=== PATIENT | female | born 1990 | race Caucasian/White ===

== ENCOUNTER 2020-03-17 08:41 | Emergency (ER) | payer BC, SELFPAY ==
[2020-03-17 08:57] VITALS: BP 95/39; PULSE 51; RESP 16; TEMP 36.4
--- NOTE | 2020-03-17 09:06 | ED.EYEPROB ---
HPI - Eye Problem General Chief complaint: Eye Problems Stated complaint: Eye problems Time Seen by Provider: 03/17/20 09:06 Source: patient and RN notes reviewed Mode of arrival: ambulatory Limitations: no limitations History of Present Illness HPI Narrative: 30 year old female who presents to [facility] with complaints of feeling like something is in her right eye since 10 pm on [place]. She states that she was adjusting her blankets and doesn't know if she got an eyelash in her eye or something off of blanket went into her right eye. Patient states that she it feels like something is in her eye and she has washed her eye out with no improvement in sensation. She states that she has no change in her vision,denies any photophobia, does admit to some excess tearing and redness to sclera of her right eye. MD chief complaint: eye redness and foreign body (sensation to right eye) Onset (ago): day(s) (since [address]) Onset description: sudden Duration: constant Location: right eye Eye Symptoms: redness and foreign body sensation Place: home Severity: mild Severity scale (1-10): 3 Context: contact lens use Associated symptoms: none Treatments Prior to Arrival: irrigated eye Related Data Patient tetanus UTD: Yes Allergies Allergy/AdvReac Type Severity Reaction Status Date / Time No Known Allergies Allergy Verified 06/29/19 12:58 Review of Systems Review of Systems: Narrative: CONSTITUTIONAL: Denies fever, chills, or sweats. EYES: Denies visual changes,positive for right eye redness,and increase tearing with foreign body feeling to right eye. ENT: Denies rhinorrhea, congestion, sore throat, or otalgia. CARDIOVASCULAR: Denies chest pain, palpitations, or edema. RESPIRATORY: Denies cough or dyspnea. GASTROINTESTINAL: Denies abdominal pain, nausea, vomiting, or diarrhea. GENITOURINARY: Denies dysuria or hematuria. SKIN: Denies rash or itching. MUSCULOSKELETAL: Denies back pain, joint pain, or myalgia. NEUROLOGIC: Denies headache, numbness, or weakness. PSYCHIATRIC: Denies anxiety or depression. 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 There is no relevant family history pertinent to the presenting complaint Exam Narrative: Exam Narrative: GENERAL: Well-appearing, well-nourished, and in no acute distress. HEAD: Normocephalic, atraumatic. EYES: PERRLA and EOMI.right sclerae red and irritated, with no change in vision ENT: Nares clear, no rhinorrhea or epistaxis. Mucous membranes moist. NECK: Supple.no lymphadenopathy CHEST: Clear to auscultation. No respiratory distress. HEART: Regular rate and rhythm. No murmur heard. Normal peripheral pulses. ABDOMEN: Soft, nontender, nondistended, normal active bowel sounds. EXTREMITIES: Normal range of motion. No edema. SKIN: Warm, dry, no rash. NEURO: No focal deficits. Alert and oriented x3. Course Vital Signs Vital signs: Vital Signs Temperature 36.4 C 03/17/20 08:57 Pulse Rate 51 L 03/17/20 08:57 Respiratory Rate 16 03/17/20 08:57 Blood Pr
== END 2020-03-17 09:35 | disposition home or self-care (01) ==
PROVIDERS: Emergency Provider Registered Nurse
DX: S05.01XA Injury of conjunctiva and corneal abrasion without foreign body, right eye, initial encounter (principal); X58.XXXA Exposure to other specified factors, initial encounter
CPT/HCPCS: 99213; A9270; G0463

== ENCOUNTER 2021-01-06 18:09 | Emergency (ER) | payer SELFPAY ==
[2021-01-06 18:19] VITALS: BP 129/61; PULSE 64; RESP 18; TEMP 36.7; O2SAT 100
[2021-01-06 18:51] LABS: Basophils Absolute Auto 0.1 K/mm3 (0.0-0.1); Basophils Percent Auto 0.6 % (0.2-1.2); Eosinophils Absolute Auto 0.2 K/mm3 (0-0.3); Hematocrit 36.4 % (37.0-47.0); Hemoglobin 12.4 g/dL (12.0-15.0); Immature Granulocyte Absolute 0.01 K/mm3 (0.00-0.031); Immature Granulocyte Percent A 0.1 % (0-0.5); Lymphocytes Absolute Auto 1.75 K/mm3 (0.9-3.2); Lymphocytes Percent Auto 22.3 % (18.3-44.2); Mean Corpuscular HGB Conc 34.1 g/dl (32-36); Mean Platelet Volume 11.8 fl (7.4-10.4); Monocytes Absolute Auto 0.4 K/mm3 (0.1-0.6); Monocytes Percent Auto 4.7 % (2.6-8.5); Neutrophils Absolute Auto 5.5 K/mm3 (1.3-6.7); Neutrophils Percent Auto 70.3 % (45.5-73.1); Platelet Count Result 230 k/mm3 (150-375); Red Cell Distribution Width 12.2 % (11.5-14.5); White Blood Count 7.9 K/mm3 (4.5-10.0)
--- NOTE | 2021-01-06 19:53 | PC.NURSE ---
Patient and her state they want to leave. States she is feeling much better and will follow up with her OB. Patient advised of risks of leaving. Patient ambulated out of the ED with a steady gait.
== END 2021-01-06 19:53 | disposition left against medical advice (07) ==
LOC: ANHED 20:09
PROVIDERS: Emergency Provider Emergency Medicine
DX: Z53.21 Procedure and treatment not carried out due to patient leaving prior to being seen by health care provider (principal); O20.9 Hemorrhage in early pregnancy, unspecified; Z3A.01 Less than 8 weeks gestation of pregnancy
CPT/HCPCS: 36415; 84702; 85025; 85461; 99199

== ENCOUNTER 2022-03-14 11:42 | Emergency (ER) | payer SELFPAY ==
[2022-03-14 11:52] VITALS: BP 98/61; PULSE 66; RESP 16; TEMP 36.4; O2SAT 100
--- NOTE | 2022-03-14 12:25 | ED.GENADULT ---
HPI - General Adult General Chief complaint: Extremity Problem,Nontraumatic Stated complaint: infected toenail on rt foot Time Seen by Provider: 03/14/22 12:25 Source: patient, RN notes reviewed and old records reviewed Mode of arrival: ambulatory Limitations: no limitations History of Present Illness HPI narrative: 32-year-old female who presents to [facility] with complaints of infected toenail on the right foot 2nd toe. Patient reports that she has an appointment with a distribution accounting clerk on Thursday was unable to be seen today. Patient reports that she has had problems with toenail since December and it was all the way healed then just recently the nail has grown under on the lateral aspect with some redness and purulent drainage. She has been soaking toe in warm Epsom salt and applying bacitracin ointment. Patient is her 7 month old . complaint: infected toe right 2nd toe Severity scale (1-10): 4 Related Data Allergies Allergy/AdvReac Type Severity Reaction Status Date / Time No Known Allergies Allergy Verified 03/14/22 12:18 Review of Systems Review of Systems: CONSTITUTIONAL: Denies fever, chills, or sweats. EYES: Denies visual changes, redness, or discharge. ENT: Denies rhinorrhea, congestion, sore throat, or otalgia. CARDIOVASCULAR: Denies chest pain, palpitations, or edema. RESPIRATORY: Denies cough or dyspnea. GASTROINTESTINAL: Denies abdominal pain, nausea, vomiting, or diarrhea. GENITOURINARY: Denies dysuria or hematuria. SKIN: Denies rash or itching.Positive for redness discomfort with some purulent drainage right 2nd toe at lateral edge of toe MUSCULOSKELETAL: Denies back pain, joint pain, or myalgia. NEUROLOGIC: Denies headache, numbness, or weakness. PSYCHIATRIC: Denies anxiety or depression. 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 Cande, MANAGER [employer]) Grandparent Family history of coronary artery disease Grandparent Diabetes mellitus Social History Social History (Updated 03/17/20 @ 14:55 by Tamika Castellon NP) Smoking status: Never smoker Second hand tobacco smoke exposure: No Alcohol intake: never Substance use: never Gender identity (if verbalized by the patient): Female Comments At time of signature, agree with nursing past medical, surgical, social and family history. There is no relevant family history pertinent to the presenting complaint Exam Narrative: GENERAL: Well-appearing, well-nourished, and in no acute distress. HEAD: Normocephalic, atraumatic. EYES: PERRLA and EOMI. ENT: Nares clear, no rhinorrhea or epistaxis. Mucous membranes moist.TM's normal with good light reflex, throat pink with no lesions or exudates no swelling NECK: Supple.No lymphadenopathy CHEST: Clear to auscultation. No respiratory distress.SAO2 100% on room air HEART: Regular rate and rhythm. No murmur heard. Normal peripheral pulses. ABDOMEN: Soft, nontender, nondistended, normal active bowel sounds. EXTREMITIES: Normal range of motion. No edema. SKIN: Warm, dry, no rash. redness at edge of toe nail with some pain swelling and small amount of yellowish drainage right 2nd toe NEURO: No focal deficits. Alert and oriented x3. Course Course Emergency Course: Patient is aware of diagnosis, understands and agrees to treatment plan.? Anticipatory guidance given.? Patient agrees to follow-up as directed and is aware of reasons to seek care at the emergency department. Portions of this record may have been created with voice recognition software Level of Care: Express Care Visit
== END 2022-03-14 12:50 | disposition home or self-care (01) ==
PROVIDERS: Emergency Provider Registered Nurse
DX: L60.0 Ingrowing nail (principal)
CPT/HCPCS: 99213; G0463

== ENCOUNTER 2025-02-25 13:02 | Emergency (ER) | payer BC, SELFPAY ==
--- OUTSIDE RECORDS SUMMARY | 2025-01-26 07:37 | XMS_ITS | Continuity of Care Document ---
Author Organization [facility] [place] Address [address] [place] [address] [place] [phone] Phone Care Team Providers Care Bag Printer Name Role Phone Sandy PT,MPT,ATC, Rolly Unavailable Unavai lable Procedures Procedure Date Therapeutic Activities Dry Needling 1-2 muscles Cancel or No Show Charge Therapeutic Activities Dry Needling 1-2 muscles Therapeutic Activities Neuromuscular Re-Ed Therapeutic Activities Neuromuscular Re-Ed Therapeutic Exercise PT Evaluation Moderate Complexity Therapeutic Activities Neuromuscular Re-Ed PT RE-EVALUATION THERAPEUTIC EXERCISES NEUROMUSCULAR RE-ED MANUAL THERAPY FUNC ACTIVITY THERAPEUTIC EXERCISES NEUROMUSCULAR RE-ED MANUAL THERAPY FUNC ACTIVITY THERAPEUTIC EXERCISES NEUROMUSCULAR RE-ED MANUAL THERAPY FUNC ACTIVITY THERAPEUTIC EXERCISES NEUROMUSCULAR RE-ED MANUAL THERAPY FUNC ACTIVITY THERAPEUTIC EXERCISES NEUROMUSCULAR RE-ED MANUAL THERAPY FUNC ACTIVITY THERAPEUTIC EXERCISES NEUROMUSCULAR RE-ED MANUAL THERAPY FUNC ACTIVITY THERAPEUTIC EXERCISES NEUROMUSCULAR RE-ED MANUAL THERAPY FUNC ACTIVITY THERAPEUTIC EXERCISES NEUROMUSCULAR RE-ED MANUAL THERAPY FUNC ACTIVITY THERAPEUTIC EXERCISES MANUAL THERAPY FUNC ACTIVITY PT EVALUATION THERAPEUTIC EXERCISES Theraband, per yard Mini Bands Advance Directives Directive Yes / No Effective Date File Name No Information Encounters Encounter Description Practice Location Reason(s) For Visit Diagnoses Date Provider Providers Copied on Encounter [facility] [address], [id number], tel:[phone] Carmine No Information Nov-0 6-202 [address] [place] , [place], [place]. [facility] [facility] [address], [id number], tel:[phone] Carmine No Information Sep-3 0-202 [address] [place] , [place], [place]. Referring Provider: Access Direct. [facility], [id number], tel:[phone] Carmine No Information Sep-2 3-202 5 [place] , [place], [place]. Referring Provider: Physician Screen. [facility] [facility] [address], [place], [place], [id number], tel:[phone] Carmine No Information Sep-0 9-202 5 [place] , [place]. Referring Provider: Access Direct. [facility] [address] [facility] [address], [place], [place], [id number], tel:[phone] Carmine No Information Sep-0 2-202 5 [place] , [place]. Referring Provider: Access Direct. [facility], [address], [place], [place], [id number], [place] tel:[phone] Carmine No Information [address] [place] , [place]. Referring Provider: Access Direct. [facility], [address], [place], [place], [id number], [place] tel:[phone] Carmine No Information [address] [place] , [place]. Referring Provider: Access Direct. [facility], [address], [place], [place], [id number], [place] tel:[phone] [place] [facility] No Information [address] [place] [place]. . Referring Provider: Bjorn Delacruz, [address], [place], [address]. tel:[phone] [facility], [place], [place], [id number], [place] tel:[phone] [place] [facility] No Information [address] [place] [place]. . Referring Provider: Bjorn Delacruz, [address], [place], [address]. tel:[phone] [facility], [place], [place], [id number], [place] tel:[phone] [place] [facility] No Information [address] [place] [place]. . Referring Provider: Bjorn Delacruz, [address], [place], [address]. tel:[phone] [facility], [place], [place], [id number], [place] tel:[phone] [place] [facility] No Information 3- 5 [place]. . Referring Provider: Ernie Phillips [address], [place], [address]. tel:[phone] [facility], [address], [place], [place], [id number], [place] tel:[phone] [place] [facility] No Information 0 8-201 [address] [place]. . Referring Provider: Bjorn Delacruz, [address] [place] [address], [place], [address]. tel:[phone] [facility], [address], [place], [place], [id number], [place] tel:[phone] [place] [facility] No Information 6-201 5 [place]. . Referring Provider: Bjorn Delacruz, [address] [facility] [address], [place], [address]. tel:[phone] [place] [address], [address], [place], [place], [id number], [place] tel:[phone] [place] [facility] No Information 4-201 5 [place]. . Referring Provider: Ernie Phillips [facility] [address], [place], [address]. tel:[phone] [facility], [address], [place], [place], [id number], [place] tel:[phone] [place] [facility] No Information 2-201 5 [place]. . Referring Provider: Ernie Phillips [facility] [address], [place], [address]. tel:[phone] [facility], [place], [place], [id number], [place] tel:[phone] [place] [facility] No Information 7-201 [address] [place] [place]. . Referring Provider: Ernie Phillips [facility] [address], [place], [address]. tel:[phone] [facility], [address] [facility] [address], [place], [place], [id number], [place] tel:[phone] [place] [facility] Pain in joint involving pelvic region and thigh 5 [place]. . Referring Provider: Bjorn Delacruz, [address] [facility] [address], [place], [address]. tel:[phone] Family History Family Member Type Diagnosis Age At Onset No Information Payers Payer name Insurance type Covered libertarian ID Authorsandraa kristal(s) [facility] [id number] Social History Type Description Quantity Date Captured Comments Sex Female Smoking Status No Information Chief Complaint And Reason For Visit No Information Reason For Referral Reason For Referral No Information History Of Present Illness Encounter Date Complaint History Of Prese nt Illness No Information Functional Status Date Functional Assessmen t No Information Instructions Date Instruction Additional Infor mation No Information Assessments Type Assessment Date No Information Patient Care Teams Name Effective Dates (start - stop) Status Members No Information
--- OUTSIDE RECORDS SUMMARY | 2025-01-26 07:37 | XMS_ITS | Continuity of Care Document ---
Author Organization [employer] [place] Address [address] [place] [address] [place] [phone] Phone Care Team Providers Care Machine Former Name Role Phone Sandy PT,MPT,ATC, Rolly Unavailable [...] Diagnoses Date Provider Providers Copied on Encounter [facility] [address], [id number], tel:[phone] Oliver No Information Nov-0 6-202 5 [place]. , [place], [place]. [facility] [facility] [address], [id number], tel:[phone] Oliver No Information Sep-3 0-202 5 [place]. , [place], [place]. Referring Provider: Access Direct. [facility], [id number], tel:[phone] Oliver No Information Sep-2 3-202 5 [place] , [place], [place]. Referring Provider: Physician Screen. [facility] [facility], [place], [id number], tel:[phone] Oliver No Information Sep-0 9-202 5 [place] , [place], [place]. Referring Provider: Access Direct. [facility] [address] [facility], [place], [place], [id number], tel:[phone] Oliver No Information Sep-0 2-202 5 [place] , [place], [place]. Referring Provider: Access Direct. [facility], [address], [place], [id number], [place] tel:[phone] Oliver No Information 5 [place] , [place], [place]. Referring Provider: Access Direct. [facility], [address], [place], [id number], [place] tel:[phone] Oliver No Information 5 [place] , [place]. Referring Provider: Access Direct. [facility], [address], [place], [id number], [place] tel:[phone] [place] [facility] No Information [address] [place]. . Referring Provider: Bjorn Delacruz, [address], [place], [address]. tel:[phone] [facility], [place], [id number], [place] tel:[phone] [place] [facility] No Information [address] [place]. . Referring Provider: Bjorn Delacruz, [address], [place], [address]. tel:[phone] [facility], [place], [id number], [place] tel:[phone] [place] [facility] No Information 5 [place]. . Referring Provider: Bjorn Delacruz, [address], [place], [address]. tel:[phone] [facility], [place], [id number], [place] tel:[phone] [place] [facility] No Information 3- 5 [place]. . Referring Provider: Ernie Phillips [address], [place], [address]. tel:[phone] [facility], [address], [place], [id number], [place] tel:[phone] [place] [facility] No Information 0 8-201 5 [place]. . Referring Provider: Bjorn Delacruz, [id number] [place] [address], [place], [address]. tel:[phone] [facility], [address], [place], [id number], [place] tel:[phone] [place] [facility] No Information 6-201 [address] [place]. . Referring Provider: Bjorn Delacruz, [address] [facility] [address], [place], [address]. tel:[phone] [place] [address], [address], [place], [id number], [place] tel:[phone] [place] [facility] No Information 4-201 5 [place]. . Referring Provider: Ernie Phillips [facility] [address], [place], [address]. tel:[phone] [facility], [address], [place], [id number], [place] tel:[phone] [place] [facility] No Information 2-201 5 [place]. . Referring Provider: Ernie Phillips [facility] [address], [place], [address]. tel:[phone] [facility], [place], [id number], [place] tel:[phone] [place] [facility] No Information 7-201 5 [place]. . Referring Provider: Ernie Phillips [facility] [address], [place], [address]. tel:[phone] [facility] [place], [address] [facility] [address], [place], [place], [id number], [place] tel:[phone] [place] [facility] Pain in joint involving pelvic region and thigh 5 [place]. . Referring Provider: Bjorn Delacruz, [address] [facility] [address], [place], [address]. tel:[phone] Family History Family Member Type Diagnosis Age At Onset No Information Payers Payer name Insurance type Covered alliance party ID Authorsandraa kristal(s) [facility] [id number] Social History Type Description Quantity Date Captured [...]
--- OUTSIDE RECORDS SUMMARY | 2025-02-25 13:05 | XMS_ITS | Clinical Summary ---
Author Organization [facility] Address [address] [place] [address] Phone Care Team Providers Care Patrol Driver Name Role Phone Clair Malik MD Primary Care Provider Allergies No known active allergies Medications albuterol sulfate 90 mcg/Actuation inhaler Take 2 Puffs by inhalation every 6 hours as needed. 0 Active methylPREDNISol one (MEDROL DOSPACK) 4 mg Tablets, Dose PackIndications :Allergic contact dermatitis, unspecified trigger Taper as directed, per package instructions 21 Tablet 5 Active erythromycin (ILOTYCIN) 5 mg/gram (0.5 %) ointmentIndicat ions:Edema of right upper eyelid Administer 0.25 Inches in left eye every 4 hours. 3.5 Gram 5 Active Active Problems Problem Noted Date Diagnosed Date Chronic blood loss anemia 06/30/2023 Hip pain 06/30/2023 S/P section 08/14/2021 Migraine without aura and wi thout status migrainosus, not intractable 04/20/2018 PLTCS 07/04, male Wilian, Chorio s/p A/G/C x 24' 07/05/2015 Acne 08/06/2013 Overview (06/30/2023): ACNE NEC Asthma 08/06/2013 Overview (06/30/2023): ASTHMA NOS Vaginal bleeding in , second trimester Encounters Date Type Department Care Team Description 02/21/2025 External Device Data [facility] ABSTRACTION Provider, Abstract 02/07/2025 External Device Data [facility] ABSTRACTION Provider, Abstract 01/18/2025 External Device Data [facility] ABSTRACTION Provider, Abstract 01/18/2025 External Device Data [facility] ABSTRACTION Provider, Abstract 12/23/2024 Results Follow-Up [facility] Internal Medicine - [place] [place] [address] Keely Cartwright NP ECHO COMPLETE - CONTRAST AND STRAIN IF INDICATED, CBC WITH DIFFERENTIAL, COMPREHENSIVE METABOLIC PANEL, Additional followed-up results: 2 12/20/2024 External Device Data [facility] ABSTRACTION Provider, Abstract 12/20/2024 External Device Data [facility] ABSTRACTION Provider, Abstract 12/16/2024 7:54 AM CDT - 12/16/2024 11:59 PM CDT Hospital Encounter [facility] [place] [id number] [place] [address] Keely Cartwright NP Discharge Disposition: Home or Self Care 12/13/2024 8:30 AM CDT Office Visit [facility] Internal Medicine - [place] D[place] [address] [place] [address] [address] [place] [address] Keely Cartwright NP Encounter for routine adult health examination with abnormal findings (Primary Dx); Heart palpitations; Murmur; Allergic contact dermatitis, unspecified trigger; Edema of right upper eyelid; Screening for cardiovascular condition; Screening for thyroid disorder; BMI 24.0-24.9, adult from Last 3 Months Immunizations Immunization Administration Dates Next Due (ADACEL/BOOSTRIX)(10 YR UP) TDAP VACCINE, 0.5ML, IM 06/17/2015,11/05/2007 (GARDASIL)(9-45 YRS) HUMAN PAPILLOMAVIRUS VACCINE, TYPES 6, 11, 16, 18, QUADRIVALENT (4VHPV), 3 DOSE, IM 10/22/2007 (PFIZER)(12 YR UP) COVID-19 VACCINE - EMERGENCY USE AUTHORIZATION, MRNA, [id number](PF) 30 MCG/0.3 ML IM SUSP 01/26/2021,01/26/2021,06/05/2020,05/15 INFLUENZA VACCINE QUADRIVALE NT 3 YR UP PF IM 07/08/2015 Influenza Seasonal Unspecifi ed Formulation IM 12/21/2012 Meningococcal Polysaccharide Vaccine SQ 10/14/2007 Family History Medical History Relation Name Comments Healthy Brother Healthy Father Gus Eaton Hypertension Father Gus Eaton Healthy Maternal Grandfather Breast Cancer Maternal Grandmother Kristi Garcia Healthy Maternal Grandmother Kristi [place] Asthma Mother Pamela Garcia Healthy Mother Pamela Garcia Healthy Paternal Grandfather Kirk E[place] Skin Cancer Paternal Grandfather Kirk [place] Heart Attack Paternal Grandmother Healthy Son Relation Name Status Comments Brother Alive Father Gus Eaton Alive Maternal Grandfather Alive Maternal Grandmother Kristi Garcia Alive Mother Pamela Garcia Alive Paternal Grandfather Kirk Eaton Alive Paternal Grandmother Alive Son Alive Social History Tobacco Use Types Packs/Day Years Used Date Smoking Tobacco: Never Smokeless Tobacco: Never Tobacco Cessation:Counseling Given: Not Answered Alcohol Use Standard Drinks/Week Comments No 0 (1 standard drink = 0.6 oz pur e alcohol) Comments No Sex and Gender Information Value Date Recorded Sex Assigned at Not on file 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 Gender Identity Not on file Sexual Orientation Not on file Last Filed Vital Signs Vital Sign Reading Time Taken Comments Blood Pressure 110/78 12/13/2024 8:20 AM CDT Pulse 60 12/13/2024 8:20 AM CDT Temperature 36.7 C (98.1 F) 12/13/2024 8:20 AM CDT Respiratory Rate 18 08/17/2021 7:11 AM CDT 1 8 Oxygen Saturation 98% 12/13/2024 8:20 AM CDT Inhaled Oxygen Concentration - - Weight 64.4 kg (142 lb) 12/13/2024 8:20 AM CDT Height 162.6 cm (5' 4) 12/13/2024 8:20 AM CDT Body Mass Index 24.37 12/13/2024 8:20 AM CDT Plan of Treatment Health Maintenance Due Date Last Done Comments HPV VACCINES (2 - 3-dose series) 11/19/2007 10/22/19 08 HEPATITIS B VACCINES (1 of 3 - 19+ 3-dose series) 2008 HPV/Cotest (21-29) 2010 CERVICAL CANCER SCREENING 2019 HPV/Cotest (30-65) 2019 PAP SMEAR 2019 INFLUENZA VACCINE (#1) 2024 07/08/2015, 2012 COVID-19 Vaccine (5 - 2024-2 6 season) 2024 01/26/2021, 01/26/2021, 06/05/2020, Additional history exists DTAP/TDAP/TD VACCINES (3 - T d or Tdap) 06/16/2025 06/17/2015, 11/05/2007 Preventative Visit- Commercial Completed 12/13/2024 , 06/30/2023 Procedures Procedure Name Priority Date/Time Associated Diagnosis Comments LIPID PANEL Routine 12/27/2024 7:25 AM CDT Encounter for routine adult health examination with abnormal findings Screening for cardiovascular condition TSH REFLEXIVE Routine 12/27/2024 7:25 AM CDT Encounter for routine adult health examination with abnormal findings Screening for thyroid disorder Heart palpitations COMPREHENSIVE METABOLIC PANEL Routine 12/27/2024 7:25 AM CDT Encounter for routine adult health examination with abnormal findings Heart palpitations CBC WITH DIFFERENTIAL Routine 12/27/2024 7:25 AM CDT Encounter for routine adult health examination with abnormal findings Heart palpitations ECHO COMPLETE Routine 12/16/2024 8:31 AM CDT Heart palpitations Murmur from Last 3 Months Results * TSH REFLEXIVE (12/27/2024 7:25 AM CDT) TSH 1.25 mIU/L [facility] Comment: Reference Range > or = 20 Years 0.40-4.50 Ranges First trimester 0.26-2.66 Second trimester 0.55-2.73 Third trimester 0.43-2.91 FASTING:YES FASTING: YES Test [facility]formed [facility]: [facility] [address] [place] [phone] Kevin Díaz Vo Blood 12/27/2024 7:25 AM CDT 12/27/2024 7:26 AM CDT Keely Cartwright NP CHEMISTRY ORDERABLES Final Re sult [facility] [phone] [facility] [id number] [place] [address] * (ABNORMAL) CBC WITH DIFFERENTIAL (12/27/2024 7:25 AM CDT) WBC 3.7(L) 3.8 - 10.8 Thousand/ uL [facility] RBC 3.86 3.80 - 5.10 Million/u L [facility] HEMOGLOBIN 11.5(L) 11.7 - 15.5 g/dL [facility] HEMATOCRIT 36.1 35.0 - 45.0 % [facility] MCV 93.5 80.0 - 100.0 fL [facility] MCH 29.8 27.0 - 33.0 pg [facility] MCHC 31.9(L) 32.0 - 36.0 g/dL [facility] Comment: For adults, a slight decrease in the calculated MCHC value (in the range of 30 to 32 g/dL) is most likely not clinically significant; however, it should be interpreted with caution in correlation with other red cell parameters and the patient's clinical condition. RDW 13.1 11.0 - 15.0 % [facility] PLATELETS 198 140 - 400 Thousand/ uL [facility] MPV 12.5 7.5 - 12.5 fL [facility] NEUTROPHIL ABSOLUTE 1,846 1,500 - 7,800 cells/uL [facility] LYMPHOCYTE ABSOLUTE 1,484 850 - 3,900 cells/uL [facility] MONOCYTE ABSOLUTE 281 200 - 950 cells/uL [facility] EOSINOPHIL ABSOLUTE 70 15 - 500 cells/uL [facility] BASOPHILS ABSOLUTE 19 0 - 200 cells/uL [facility] NEUTROPHIL 49.9 % [facility] LYMPHOCYTES 40.1 % [facility] [place] MONOCYTE 7.6 % [facility] EOSINOPHILS 1.9 % [facility] [place] BASOPHILS 0.5 % [facility] Comment: FASTING:YES FASTING: YES Test Performed at: [facility] [address] [phone] [facility] Blood 12/27/2024 7:25 AM CDT 12/27/2024 7:26 AM CDT us Keely Cartwright NP HEMATOLOGY ORDERABLES Final R esult [facility] [phone] [facility] [place] [address] [address] * (ABNORMAL) LIPID PANEL (12/27/2024 7:25 AM CDT) CHOLESTEROL 188 <200 mg/dL [facility] HDL 60 > OR = 50 mg/dL [facility] TRIGLYCERIDE 59 <150 mg/dL [facility] [place] LDL CALCULATED 114(H) mg/dL (calc) [facility] Comment: Reference range: <100 Desirable range <100 mg/dL for primary prevention; <70 mg/dL for patients with CHD or diabetic patients with > or = 2 CHD risk factors. LDL-C is now calculated using the Maryellen calculation, which is a validated novel method providing better accuracy than the Friedewald equation in the estimation of LDL-C. Michael MONTILLA et al. GEORGE. 2013;310(19): 9998-6912 (http://education.[employer]/faq/ABN902) CHOL/HDL RATIO 3.1 <5.0 (calc) [facility] NON-HDL CHOLESTEROL 128 <130 mg/dL (calc) [facility] Comment: For patients with diabetes plus 1 major ASCVD risk factor, treating to a non-HDL-C goal of <100 mg/dL (LDL-C of <70 mg/dL) is considered a therapeutic option. Test Performed at: [facility] [address] [phone] [facility] Blood 12/27/2024 7:25 AM CDT 12/27/2024 7:26 AM CDT Keely Cartwright GAUGE AND WEIGH MACHINE OPERATOR CHEMISTRY ORDERABLES Final Re sult [facility] [phone] [facility] [place] [address] [address] * COMPREHENSIVE METABOLIC PANEL (12/27/2024 7:25 AM CDT) GLUCOSE 89 65 - 99 mg/dL [facility] Comment: Fasting reference interval BUN 16 7 - 25 mg/dL [email or web address] CREATININE 0.67 0.50 - 0.97 mg/dL [facility] GFR 117 > OR = 60 mL/min/1. 73m2 [facility] [place] BUN/CREAT RATIO SEE NOTE: 6 - 22 (calc) [facility] Comment: Not Reported: BUN and Creatinine are within reference range. SODIUM 138 135 - 146 mmol/L [facility] POTASSIUM 4.5 3.5 - 5.3 mmol/L [facility] [place] CHLORIDE 108 98 - 110 mmol/L [facility] CO2 25 20 - 32 mmol/L [facility] [place] CALCIUM 8.9 8.6 - 10.2 mg/dL [facility] TOTAL PROTEIN 6.8 6.1 - 8.1 g/dL [facility] ALBUMIN 4.3 3.6 - 5.1 g/dL [facility] GLOBULIN 2.5 1.9 - 3.7 g/dL (calc) [facility] ALBUMIN/GLOBULIN RATIO 1.7 1.0 - 2.5 (calc) [facility] BILIRUBIN TOTAL 0.8 0.2 - 1.2 mg/dL [facility] ALKALINE PHOSPHATASE 31 31 - 125 U/L [facility] AST 19 10 - 30 U/L [facility] ALT 21 6 - 29 U/L [facility] Comment: FASTING:YES FASTING: YES Test Performed at: [facility] [place] [address] [phone] [facility] Blood 12/27/2024 7:25 AM CDT 12/27/2024 7:26 AM CDT Keely Cartwright NP CHEMISTRY ORDERABLES Final Re sult [employer] [facility] [phone] [facility] [address] [place] [address] * ECHO COMPLETE - CONTRAST AND STRAIN IF INDICATED (12/16/2024 8:31 AM CDT) EJECTION FRACTION 60 INTERFACE SYSTEM 12/16/2024 7:06 AM CDT Narrative INTERFACE SYSTEM - 12/19/2024 4:57 PM CDT [address] [address] [email or web address] Transthoracic Echocardiogram Patient: Monica Sagastume Study ID: [id number] Gender: F : 1990 Age: 34 Race: [facility] Height 162.6cm Study Date: 12/16/2024 Weight: 64.4kg Access. #: [id number] BP: 110 / 78 *Referring Physician:* Keely Cartwright Meghan Doepke *Ordering Physician:* Keely Cartwright radio tower technician: Nurse: Indications: PALPITATIONS. MURMUR. STUDY CONCLUSIONS: SUMMARY: - Left ventricle: The cavity size was normal. Wall thickness was normal. Global systolic function is normal. For Epic reporting: the left ventricular ejection fraction is 60% . - Aortic valve: No significant regurgitation. - Mitral valve: Trace regurgitation. - Left atrium: The atrium is mildly dilated. - Right ventricle: The cavity size is normal. Systolic function is normal. - Tricuspid valve: Trivial regurgitation. - Pulmonic valve: No significant regurgitation. - Pulmonary arteries: The peak systolic pressure is 18mm Hg. - Pericardium: There is no pericardial effusion. Cardiac Anatomy: LEFT VENTRICLE: The cavity size was normal. Wall thickness was normal. Global systolic function is normal. For Epic reporting: the left ventricular ejection fraction is 60% . Global longitudinal strain was -23.8% (GLS is abnormal if greater than -16, i.e. -15). AORTIC VALVE: Trileaflet. The leaflets are normal thickness. Cusp separation is normal. No significant regurgitation. The mean systolic gradient is 5mm Hg. The peak systolic gradient is 8mm Hg. The LVOT to aortic valve VTI ratio is 0.88. The valve area is 2.8cm^2. The ratio of LVOT to aortic valve peak velocity is 0.88. AORTA: Ascending aorta: The vessel is normal-sized. MITRAL VALVE: The leaflets are normal thickness. Leaflet separation is normal. Trace regurgitation. The mean diastolic gradient is 2mm Hg. The peak diastolic gradient is 6mm Hg. LEFT ATRIUM: The atrium is mildly dilated. RIGHT VENTRICLE: The cavity size is normal. Systolic function is normal. PULMONIC VALVE: Not well visualized. No significant regurgitation. TRICUSPID VALVE: The leaflets are normal thickness. Leaflet separation is normal. Trivial regurgitation. RIGHT ATRIUM: The atrium was at the upper limits of normal in size. PERICARDIUM: There is no pericardial effusion. Measurements Left ventricle Value Ref GLS, 2D -23.8 % --------- IVS, ED, LAX (N) 0.8 cm 0.6 - 0.9 MARLENI, LAX (L) 3.2 cm 3.8 - 5.2 MARLENI/bsa, LAX (L) 1.9 cm/m^2 2.3 - 3.1 MARLENI, LAX chord (N) 4.8 cm 3.8 - 5.2 ESD, LAX chord (N) 3.2 cm 2.2 - 3.5 MARLENI/bsa, LAX chord (N) 2.9 cm/m^2 2.3 - 3.1 ESD/bsa, LAX chord (N) 1.9 cm/m^2 1.3 - 2.1 FS, LAX chord (N) 33 % 27 - 45 IVS, ED (N) 0.8 cm 0.6 - 0.9 PW, ED (N) 0.8 cm 0.6 - 0.9 EDV, 2-p (H) 115 ml 46 - 106 ESV, 2-p (H) 44 ml 14 - 42 EF, 2-p (N) 62 % 54 - 74 SV, 2-p 71 ml --------- SV/bsa, 2-p 41.8 ml/m^2 --------- E', lat sergey, TDI (N) 18.6 cm/sec >=10.0 E/e', lat sergey, TDI (N) 6 <=13 E', med sergey, TDI (N) 11.5 cm/sec >=7.0 E/e', med sergey, TDI 10 --------- E', avg, TDI 15.1 cm/sec --------- E/e', avg, TDI (N) 8 <=14 LVOT Value Ref Diam, S 2.0 cm --------- Area 3.1 cm^2 --------- Peak alexey, S 1.27 m/sec --------- VTI, S 26.5 cm --------- Peak grad, S 6 mm Hg --------- Right ventricle Value Ref MARLENI minor ax, A4C base (N) 3.8 cm 2.5 - 4.1 MARLENI minor ax, A4C mid (N) 3.3 cm 1.9 - 3.5 MARLENI major ax, A4C (H) 9.1 cm 5.9 - 8.3 TAPSE, MM (N) 2.9 cm >=1.7 Pressure, S 21 mm Hg --------- S' lateral (N) 21.6 cm/sec >=9.5 Left atrium Value Ref AP dim, ES (N) 3.2 cm 2.7 - 3.8 AP dim index, ES (N) 1.9 cm/m^2 1.5 - 2.3 SI dim, A4C 5.4 cm --------- Area ES, A4C (N) 17 cm^2 <=20 Area/bsa ES, A4C 9.82 cm^2/m^2 --------- SI dim, A2C 5.3 cm --------- SI dim, shorter 5.3 cm --------- Vol, ES, 1-p A2C (N) 50 ml 22 - 52 Vol/bsa, ES, 1-p A2C (N) 29 ml/m^2 13 - 40 Vol, ES, 2-p 46 ml --------- Vol/bsa, ES, 2-p (N) 27 ml/m^2 16 - 34 LA/Ao root ratio 1.07 --------- Right atrium Value Ref SI dim, ES, A4C (N) 4.8 cm 3.4 - 5.3 SI dim/bsa, ES, A4C (N) 2.9 cm/m^2 1.9 - 3.1 Area, ES, A4C (N) 14 cm^2 10 - 18 Vol, ES, 1-p A4C 35 ml --------- Vol/bsa, ES, 1-p A4C (N) 21 ml/m^2 9 - 33 Aortic valve Value Ref Peak v, S 1.4 m/sec --------- Mean v, S 1 m/sec --------- VTI, S 30.0 cm --------- Mean grad, S 5 mm Hg --------- Peak grad, S 8 mm Hg --------- LVOT/AV, VTI ratio 0.88 --------- SHUN, VTI 2.8 cm^2 --------- SHUN/bsa, VTI 1.64 cm^2/m^2 --------- LVOT/AV, Vpeak ratio 0.88 --------- SHUN, Vmax 2.8 cm^2 --------- SHUN/bsa, Vmax 1.64 cm^2/m^2 --------- Mitral valve Value Ref Mean v, D 0.69 m/sec --------- Peak E 1.19 m/sec --------- Peak A 0.78 m/sec --------- Decel time 214 ms --------- Mean grad, D 2 mm Hg --------- Peak grad, D 6 mm Hg --------- Peak E/A ratio 1.5 --------- A-VTI 38.9 cm --------- Pulmonic valve Value Ref Peak v, S 0.93 m/sec --------- Peak grad, S 3 mm Hg --------- Tricuspid valve Value Ref TR peak v (N) 1.7 m/sec <=2.8 Peak RV-RA grad, S 11 mm Hg --------- Aortic root Value Ref Root diam, 3.0 cm --------- Ascending aorta Value Ref AAo AP diam, S 2.6 cm --------- AAo AP diam/bsa, S 1.5 cm/m^2 --------- Pulmonary artery Value Ref Pressure, S 18 mm Hg --------- Systemic veins Value Ref Estimated RA pressure 10 mm Hg --------- Legend: (L) and (H) shruthi values outside specified reference range. (N) hanson values inside specified reference range. Procedure data: Procedure information: A transthoracic echocardiogram was performed. Scanning was performed from the parasternal, apical, and subcostal acoustic windows. Transthoracic echocardiogram. Complete 2D, complete spectral Doppler, and color Doppler. Birthdate: Patient birthdate: 1990. Age: Patient is 34year(s) old. Sex: gender: female. Height: 162.6cm. 64in. Weight: 64.4kg. 142lb. Body mass index: 24.4kg/m^2. Body surface area: 1.69m^2. Blood pressure: 110/78 Study date: Study date: 12/16/2024. Study time: 07:06 AM. Prepared and Electronically Authenticated Fabián Llanos M.D. [id number]:50 Procedure Note Fabián Llanos MD - 12/19/[address] [place] [address] [email or web address] Transthoracic Echocardiogram Patient: Monica Sagastume Study ID: [id number] Gender: F : 1990 Age: 34 Race: [place] Height 162.6cm Study Date: 12/16/2024 Weight: 64.4kg Access. #: [id number] BP: 110 / 78 *Referring Physician:Keely Hedrick Meghan Doepke *Ordering Physician:Keely Hedrick radio tower technician: Nurse: Indications: PALPITATIONS. MURMUR. STUDY CONCLUSIONS: SUMMARY: - Left ventricle: The cavity size was normal. Wall thickness was normal. Global systolic function is normal. For Epic reporting: the leftventricular ejection fraction is 60% . - Aortic valve: No significant regurgitation. - Mitral valve: Trace regurgitation. - Left atrium: The atrium is mildly dilated. - Right ventricle: The cavity size is normal. Systolic function isnormal. - Tricuspid valve: Trivial regurgitation. - Pulmonic valve: No significant regurgitation. - Pulmonary arteries: The peak systolic pressure is 18mm Hg. - Pericardium: There is no pericardial effusion. Cardiac Anatomy: LEFT VENTRICLE: The cavity size was normal. Wall thickness was normal.Global systolic function is normal. For Epic reporting: the left ventricularejection fraction is 60% . Global longitudinal strain was -23.8% (GLS is abnormalif greater than -16, i.e. -15). AORTIC VALVE: Trileaflet. The leaflets are normal thickness. Cuspseparation is normal. No significant regurgitation. The mean systolic gradient is5mm Hg. The peak systolic gradient is 8mm Hg. The LVOT to aortic valve VTIratio is 0.88. The valve area is 2.8cm^2. The ratio of LVOT to aortic valvepeak velocity is 0.88. AORTA: Ascending aorta: The vessel is normal-sized. MITRAL VALVE: The leaflets are normal thickness. Leaflet separation is normal. Trace regurgitation. The mean diastolic gradient is 2mm Hg. Thepeak diastolic gradient is 6mm Hg. LEFT ATRIUM: The atrium is mildly dilated. RIGHT VENTRICLE: The cavity size is normal. Systolic function isnormal. PULMONIC VALVE: Not well visualized. No significant regurgitation. TRICUSPID VALVE: The leaflets are normal thickness. Leaflet separationis normal. Trivial regurgitation. RIGHT ATRIUM: The atrium was at the upper limits of normal in size. PERICARDIUM: There is no pericardial effusion. Measurements Left ventricle Value Ref GLS, 2D -23.8 % --------- IVS, ED, LAX (N) 0.8 cm 0.6 - 0.9 MARLENI, LAX (L) 3.2 cm 3.8 - 5.2 MARLENI/bsa, LAX (L) 1.9 cm/m^2 2.3 - 3.1 MARLENI, LAX chord (N) 4.8 cm 3.8 - 5.2 ESD, LAX chord (N) 3.2 cm 2.2 - 3.5 MARLENI/bsa, LAX chord (N) 2.9 cm/m^2 2.3 - 3.1 ESD/bsa, LAX chord (N) 1.9 cm/m^2 1.3 - 2.1 FS, LAX chord (N) 33 % 27 - 45 IVS, ED (N) 0.8 cm 0.6 - 0.9 PW, ED (N) 0.8 cm 0.6 - 0.9 EDV, 2-p (H) 115 ml 46 - 106 ESV, 2-p (H) 44 ml 14 - 42 EF, 2-p (N) 62 % 54 - 74 SV, 2-p 71 ml --------- SV/bsa, 2-p 41.8 ml/m^2 --------- E', lat sergey, TDI (N) 18.6 cm/sec >=10.0 E/e', lat sergey, TDI (N) 6 <=13 E', med sergey, TDI (N) 11.5 cm/sec >=7.0 E/e', med sergey, TDI 10 --------- E', avg, TDI 15.1 cm/sec --------- E/e', avg, TDI (N) 8 <=14 LVOT Value Ref Diam, S 2.0 cm --------- Area 3.1 cm^2 --------- Peak alexey, S 1.27 m/sec --------- VTI, S 26.5 cm --------- Peak grad, S 6 mm Hg --------- Right ventricle Value Ref MARLENI minor ax, A4C base (N) 3.8 cm 2.5 - 4.1 MARLENI minor ax, A4C mid (N) 3.3 cm 1.9 - 3.5 MARLENI major ax, A4C (H) 9.1 cm 5.9 - 8.3 TAPSE, MM (N) 2.9 cm >=1.7 Pressure, S 21 mm Hg --------- S' lateral (N) 21.6 cm/sec >=9.5 Left atrium Value Ref AP dim, ES (N) 3.2 cm 2.7 - 3.8 AP dim index, ES (N) 1.9 cm/m^2 1.5 - 2.3 SI dim, A4C 5.4 cm --------- Area ES, A4C (N) 17 cm^2 <=20 Area/bsa ES, A4C 9.82 cm^2/m^2 --------- SI dim, A2C 5.3 cm --------- SI dim, shorter 5.3 cm --------- Vol, ES, 1-p A2C (N) 50 ml 22 - 52 Vol/bsa, ES, 1-p A2C (N) 29 ml/m^2 13 - 40 Vol, ES, 2-p 46 ml --------- Vol/bsa, ES, 2-p (N) 27 ml/m^2 16 - 34 LA/Ao root ratio 1.07 --------- Right atrium Value Ref SI dim, ES, A4C (N) 4.8 cm 3.4 - 5.3 SI dim/bsa, ES, A4C (N) 2.9 cm/m^2 1.9 - 3.1 Area, ES, A4C (N) 14 cm^2 10 - 18 Vol, ES, 1-p A4C 35 ml --------- Vol/bsa, ES, 1-p A4C (N) 21 ml/m^2 9 - 33 Aortic valve Value Ref Peak v, S 1.4 m/sec --------- Mean v, S 1 m/sec --------- VTI, S 30.0 cm --------- Mean grad, S 5 mm Hg --------- Peak grad, S 8 mm Hg --------- LVOT/AV, VTI ratio 0.88 --------- SHUN, VTI 2.8 cm^2 --------- SHUN/bsa, VTI 1.64 cm^2/m^2 --------- LVOT/AV, Vpeak ratio 0.88 --------- SHUN, Vmax 2.8 cm^2 --------- SHUN/bsa, Vmax 1.64 cm^2/m^2 --------- Mitral valve Value Ref Mean v, D 0.69 m/sec --------- Peak E 1.19 m/sec --------- Peak A 0.78 m/sec --------- Decel time 214 ms --------- Mean grad, D 2 mm Hg --------- Peak grad, D 6 mm Hg --------- Peak E/A ratio 1.5 --------- A-VTI 38.9 cm --------- Pulmonic valve Value Ref Peak v, S 0.93 m/sec --------- Peak grad, S 3 mm Hg --------- Tricuspid valve Value Ref TR peak v (N) 1.7 m/sec <=2.8 Peak RV-RA grad, S 11 mm Hg --------- Aortic root Value Ref Root diam, 3.0 cm --------- Ascending aorta Value Ref AAo AP diam, S 2.6 cm --------- AAo AP diam/bsa, S 1.5 cm/m^2 --------- Pulmonary artery Value Ref Pressure, S 18 mm Hg --------- Systemic veins Value Ref Estimated RA pressure 10 mm Hg --------- Legend: (L) and (H) shruthi values outside specified reference range. (N) hanson values inside specified reference range. Procedure data: Procedure information: A transthoracic echocardiogram was performed.Scanning was performed from the parasternal, apical, and subcostal acousticwindows. Transthoracic echocardiogram. Complete 2D, complete spectralDoppler, and color Doppler. Birthdate: Patient birthdate: 1990. Age:Patient is 34year(s) old. Sex: gender: female. Height: 162.6cm. 64in. Weight: 64.4kg. 142lb. Body mass index: 24.4kg/m^2. Body surfacearea: 1.69m^2. Blood pressure: 110/78 Study date: Study date:12/16/2024. Study time: 07:06 AM. Prepared and Electronically Authenticated Fabián Llanos M.D. [id number] Keely Cartwright NP ORDERABLES Final Result INTERFACE SYSTEM Refer to clinic/hospital department from Last 3 Months Insurance [employer] BLUE PREFERRED Advance Directives For more information, please contact: [phone] * Full Code (Latest Code Status on File) Date Activated Date Inactivated Comments 08/13/2021 5:45 AM 08/13/2021 9:45 AM * Full Code Date Activated Date Inactivated Comments 04/23/2021 9:21 PM 04/24/2021 12:45 AM * Full Code Date Activated Date Inactivated Comments 07/05/2015 5:05 PM 07/08/2015 3:22 PM * Full Code Date Activated Date Inactivated Comments 07/05/2015 1:22 AM 07/05/2015 5:05 PM * Full Code Date Activated Date Inactivated Comments 07/05/2015 1:17 AM 07/05/2015 1:22 AM Care Teams Patrol Driver Relationship Specialty [place] [address] [place] [id number] PCP - General Internal Medicine 06/30/23
--- OUTSIDE RECORDS SUMMARY | 2025-02-25 13:05 | XMS_ITS | Clinical Summary ---
Author Organization [facility] Address [address] [place] [address] Care Team Providers Care Sanitation Manager Name Role Phone Mariya Solis APRN-ENTERTAINMENT CENTRE MANAGER Primary Care Provi [facility] Source Comments [facility],non-owned Affiliates and Associated Physician Practices is amultiple site organization consisting of ambulatory clinics and hospital sitesin [place], [place], [place] and [place]. This disclosure is being madepursuant to the Care Everywhere program and may not contain all information available regarding this patient. Last updated 17.[facility] Allergies No known active allergies Medications * Be aware that medications may not be up to date on this document. Alwaysverify current medications with the patient. VENTOLIN HFA 108 (90 Base) MCG/ACT inhaler Inhale 2 puffs by mouth every 6 hours as needed 1 Inhaler 1 06/14/2019 Active Active Problems Problem Noted Date Diagnosed Date Migraine without aura and wi thout status migrainosus, not intractable 04/20/2018 Family History Medical History Relation Name Comments Other Brother corneal tranpla nt Hyperlipidemia Father Glaucoma Maternal Grandmother CAD (Coronary Artery Disease) Paternal Grandmother Relation Name Status Comments Brother Alive Father Alive Maternal Grandmother Mother Alive Paternal Grandmother Social History Tobacco Use Types Packs/Day Years Used Date Smoking Tobacco: Never Smokeless Tobacco: Never Comments No Sex and Gender Information Value Date Recorded Sex Assigned at Not on file Legal Sex Female 9:29 AM CDT Gender Identity Not on file Sexual Orientation Not on file 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 Not on file Not on file Not on file Last Filed Vital Signs Vital Sign Reading Time Taken Comments Blood Pressure 110/80 04/20/2018 3:32 PM RADIOLOGIC TECHNOLOGY TEACHER Pulse 68 04/20/2018 3:32 PM RADIOLOGIC TECHNOLOGY TEACHER Temperature 36.4 C (97.5 F) 04/20/2018 3:32 PM RADIOLOGIC TECHNOLOGY TEACHER Respiratory Rate 16 09/02/2016 4:30 PM CDT Oxygen Saturation 100% 10/21/2016 12:59 PM CDT Inhaled Oxygen Concentration - - Weight 63 kg (139 lb) 04/20/2018 3:32 PM RADIOLOGIC TECHNOLOGY TEACHER Height 162.6 cm (5' 4) 10/21/2016 12:59 PM CDT Body Mass Index 23.86 10/21/2016 12:59 PM CDT Plan of Treatment Health Maintenance Due Date Last Done Comments HIV SCREENING 2004 HEPATITIS C SCREENING 03/06/2007 DTAP/TDAP/TD VACCINES (1 - Tdap) 2008 HEPATITIS B VACCINE (1 of 3 - 19+ 3-dose series) 2008 HPV VACCINE (1 - 3-dose SCDM series) 2016 DEPRESSION SCREENING 03/23/2024 COVID-19 VACCINE (1 - 2024-2 6 season) 2024 INFLUENZA VACCINE (#1) 2024 ZOSTER VACCINE (1 of 2) 2039 HIB VACCINE Aged Out No longer eligi ble based on patient's age to complete this topic MENINGOCOCCAL (Group B) VACC INE SHARED DECISION-MAKING Aged Out No longer eligibl e based on patient's age to complete this topic MENINGOCOCCAL GROUPS A/C/Y/W VACCINE Aged Out No longer eligible b ased on patient's age to complete this topic PNEUMOCOCCAL VACCINE Aged Out No long er eligible based on patient's age to complete this topic Insurance [facility] Care Teams Sanitation Manager Relationship Specialty Start Date End Date Mariya Solis, [employer] PCP - General 04/20/18
--- OUTSIDE RECORDS SUMMARY | 2025-02-25 13:05 | XMS_ITS | Encounter Summary ---
Author Organization [facility] Address [address] [place] [address] Care Team Providers Care Physics Technical Officer Name Role Phone Mariya Solis Primary Care Provi irma Reason for Visit * Reason Onset Date Comments Follow-up 04/16/2018 R/O Triage 1st a ttempt to contact patient LM Encounter Details Date Type Department Care Team (Late st Contact Info) Description 04/16/2018 Telephone [facility] [address] [address] Mariya Solis APRN-CNP [address] [facility] [place] [id number] Follow-up (R/O Triage 1st attempt to contact patient LM) Social History Tobacco Use Types Packs/Day Years Used Date Smoking Tobacco: Never Smokeless Tobacco: Never Comments No Sex and Gender Information Value Date Recorded Sex Assigned at Not on file Legal Sex Female 9:29 AM CDT Gender Identity Not on file Sexual Orientation Not on file documented as of this encounter Miscellaneous Notes * Telephone Encounter - Poonam Miranda - 04/16/2018 11:41 AM CST 1st attempt to contact patient and R/O triage for reported headache an unable to reach at this time. Left message @ [phone] with affiliation and contact number, , no pertient patient information left on voicemail. Will re attempt at a later time. Provided patient with closing statement on voicemail. If anything new develops,if anything gets worse or if you become increasingly concerned for any reason, please seek out immediate medical Attention. HOLOGY FELLOW documented in this encounter Plan of Treatment Not on file documented as of this encounter Visit Diagnoses Not on filedocumented in this encounter Care Teams Physics Technical Officer Relationship Specialty Start Date End Date Mariya Solis, SUMMER-COLON THERAPIST PCP - General 04/20/18 documented as of this encounter
[2025-02-25 13:09] VITALS: BP 111/65; PULSE 70; RESP 16; TEMP 36.6; O2SAT 99
--- NOTE | 2025-02-25 13:31 | ED_ITS ---
HPI - Ear Problem General Chief complaint: Ear Stated complaint: Left Ear Problem Time Seen by Provider: 02/25/25 13:31 Source: patient Mode of arrival: ambulatory Limitations: no limitations History of Present Illness HPI Narrative: 34 yo F presents with c/o L ear muffled and clogged for 10 days. Afebrile. All systems reviewed and negative except as noted above. 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 There is no relevant family history pertinent to the presenting complaint. Exam Narrative: GENERAL: This is a well-nourished, well-developed patient, in no apparent distress. HEAD: normocephalic, atraumatic. EYES: PERRL. Sclera clear/white. Vision is grossly intact. EARS: External ears normal, Right ear canal normal. Cerumen impacted to left ear canal. After irrigation the left TM is bulging, fluid, opaque in color, right TM is normal. Hearing grossly intact. NOSE: External nose normal NECK: Neck supple, non-tender without lymphadenopathy, masses or thyromegaly. CARDIOVASCULAR: Regular rate and rhythm without murmurs, gallops, or rubs. RESPIRATORY: Clear to auscultation. Breath sounds equal bilaterally. No wheezes, rales, or rhonchi. SKIN: warm, Dry, intact with no suspicious lesions or rash, good texture and turgor. NEURO: awake, alert, and oriented to person, place and time. There were no obvious focal neurologic abnormalities. EXTREMITIES: No joint tenderness, effusion, or edema noted. Course Course Level of Care: Express Care Visit Vital Signs Vital signs: Vital Signs Temperature 36.6 C 02/25/25 13:09 Pulse Rate 70 02/25/25 13:09 Respiratory Rate 16 02/25/25 13:09 Blood Pressure 111/65 02/25/25 13:09 Pulse Oximetry 99 02/25/25 13:09 Oxygen Delivery Room Air 02/25/25 13:09 Temperature 36.6 C 02/25/25 13:09 Pulse Rate 70 02/25/25 13:09 Respiratory Rate 16 02/25/25 13:09 Blood Pressure 111/65 02/25/25 13:09 Pulse Oximetry 99 02/25/25 13:09 Oxygen Delivery Room Air 02/25/25 13:09 Reviewed Procedures Ear Wax Removal Left Ear: Ear Wax Removal Date: 02/25/25 Ear Wax Removal Time: 13:35 Cerumenolytic Used: other ( warm water) Results: Re-examined: cerumen removed completely TM Examination: other ( clear fluid, slightly bulging) Ear Canal Exam: atraumatic Patient Tolerated Procedure: well Complications: no problems Technique: ear canal irrigated [facility] MDM Narrative Medical decision making narrative: will treat left serous otitis with amoxicillin. Patient is well-appearing, nontoxic. Differential Diagnosis Differential Diagnosis: Cerumen impaction, otitis media, otitis externa, serous otitis Discharge Plan Discharge Clinical Impression: Acute serous otitis media of left ear, Impacted cerumen of left ear Patient Disposition: Home Condition: Stable Instructions: Antibiotic Form, Fluid In The Ear (Serous Otitis Media) (ED) Additional Instructions: take antibiotic as prescribed until gone. Continue taking Fabi daily. Use an [id number] nasal spray such as Flonase or Nasacort, use as directed on packaging. See your doctor if not improving. Patient Language: Maltese Prescriptions: New amoxicillin 875 mg tablet 875 mg PO Q12H 10 Days Qty: 20 0RF Follow-up/Referrals: UNKNOWN,DOCTOR [Primary Care Provider] Time of Disposition: 13:40
== END 2025-02-25 13:46 | disposition home or self-care (01) ==
PROVIDERS: Emergency Provider Nurse Practitioner Family
DX: H65.02 Acute serous otitis media, left ear (principal); H61.22 Impacted cerumen, left ear
CPT/HCPCS: 69209; 99213; G0463